=== PATIENT | female | born 1980 ===

== ENCOUNTER 2019-08-09 09:15 | Outpatient (CLI) | payer BC ==
--- NOTE | 2019-08-10 08:31 | Ultrasound Report ---
BILATERAL DIGITAL DIAGNOSTIC MAMMOGRAM WITH CAD -- 08/09/2019 BILATERAL COMPLETE BREAST ULTRASOUND INDICATION: Recent ABNORMAL MAMMOGRAM TECHNIQUE: Digital bilateral mammographic imaging was performed. Spot compression views were obtaine d. Complete ultrasound of all four (4) quadrants was performed. This examination was interpreted with the benefit of Computer-Aided Detection (CAD) analysis. COMPARISON: 07/30/2019 mammogram FINDINGS: Breast Density: The breasts are heterogeneously dense, which may obscure small masses. MAMMOGRAPHIC FINDINGS: Bilateral spot compression views demonstrate partial effacement of asymmetries on MLO and CC views. Lateral views are negative. ULTRASOUND FINDINGS: Complete sonographic evaluation of all 4 quadrants and retroareolar region was p erformed. Ultrasound of the right breast demonstrated normal fibroglandular and fatty structures wi th no mass, cyst or suspicious shadowing. Ultrasound of the right axilla demonstrated no abnormal lym ph nodes. Ultrasound of the left breast demonstrated a benign cyst at 8:00 6 cm from the nipple measu ring 6 x 1 x 5 mm. No solid mass or suspicious shadowing. Ultrasound of the left axilla demonstrated a 1.7 cm lymph node with cortical thickening of 5 mm. No other suspicious lymph nodes.. IMPRESSION: 1. A suspicious left axillary lymph node with thickened cortex of 5 mm. Recommend ultrasound-guided n eedle biopsy to exclude malignancy. 2. Negative bilateral mammogram. 3. Negative right breast ultrasound. Follow up recommendation: Biopsy BI-RADS Category 4: Suspicious for Malignancy. A "normal" or negative report should not discourage follow up or biopsy of a clinically significant f inding. A written summary of these findings will be mailed to the patient. The patient will be entered into a mammography reporting system which will generate a reminder letter for the patient's next appointmen t at the appropriate interval. According to the [employer], yearly mammograms are recommended starting at age 40 and continuing as long as a woman is in good health. Breast MRI is recommended for women with an karlo roximately 20-25% or greater lifetime risk of breast cancer, including women with a strong family his tory of breast or ovarian cancer and women who have been treated for Hodgkin's disease. Signer Name: Theo Salguero MD Signed: 08/10/2019 8:27 AM Workstation Name: [id number]
== END 2019-08-09 09:16 | disposition home or self-care (01) ==
LOC: SPVWC 09:15
PROVIDERS: ATTEND Surgery
DX: R92.8 Other abnormal and inconclusive findings on diagnostic imaging of breast (principal); Z90.49 Acquired absence of other specified parts of digestive tract
CPT/HCPCS: 77066

== ENCOUNTER 2019-08-13 09:50 | Outpatient (CLI) | payer BC ==
--- NOTE | 2019-08-13 10:56 | Ultrasound Report ---
ULTRASOUND-GUIDED NEEDLE CORE BIOPSY LEFT AXILLARY LYMPH NODE WITH CLIP PLACEMENT CLINICAL: Cortical thickening of a left axillary lymph node. 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 Ultrasound demonstrated the previously identified node. I marked the axilla with a felt tip marker and a timeout was called. The skin was prepped with Chloro -Prep and anesthetized with 1% lidocaine. Needle core biopsy was performed through small dermatotomy using ultrasound guidance, 2% lidocaine wi th epinephrine for deep anesthesia and a 18-gauge Achieve biopsy device. 3 cores were obtained and pl aced in formalin. A clip was deployed within the lymph node. The patient tolerated the procedure well and there were no apparent complications. Hemostasis was ach ieved with minimal effort and a sterile dressing was applied. She left the department in good condition and was given instructions for wound care and follow-up. IMPRESSION: Uncomplicated ultrasound guided needle core biopsy with clip placement left axillary lymp h node. Signer Name: Theo Salguero MD Signed: 08/13/2019 10:52 AM Workstation Name: [id number]
== END 2019-08-13 09:51 | disposition home or self-care (01) ==
LOC: SPVWC 09:50
PROVIDERS: ATTEND Surgery
DX: I89.8 Other specified noninfective disorders of lymphatic vessels and lymph nodes (principal); R92.8 Other abnormal and inconclusive findings on diagnostic imaging of breast; J18.9 Pneumonia, unspecified organism; Z90.49 Acquired absence of other specified parts of digestive tract; Z87.442 Personal history of urinary calculi; Z98.890 Other specified postprocedural states; Z82.49 Family history of ischemic heart disease and other diseases of the circulatory system
CPT/HCPCS: 38505; 76942; 88305; 88342